=== PATIENT | female | born 1955 | race Caucasian/White ===

== ENCOUNTER → 2018-06-13 15:25 | Outpatient (CLI) | payer BC | END | disposition home or self-care (01) | LOC: D.CT 15:25 | DX: R07.9 Chest pain, unspecified (principal); R05 Cough ==

== ENCOUNTER → 2018-06-20 09:04 | Outpatient (CLI) | payer BC | END | disposition home or self-care (01) | LOC: D.RAD 09:00 | DX: K44.9 Diaphragmatic hernia without obstruction or gangrene (principal); R07.9 Chest pain, unspecified; R05 Cough; R14.2 Eructation; R11.0 Nausea; R19.7 Diarrhea, unspecified; R10.12 Left upper quadrant pain ==

== ENCOUNTER → 2018-09-02 08:04 | Day surgery (SDC) | payer BC | END | disposition home or self-care (01) | LOC: D.OPS 08:04 | PROVIDERS: ATTEND Surgery | DX: K21.9 Gastro-esophageal reflux disease without esophagitis (principal); K44.9 Diaphragmatic hernia without obstruction or gangrene; Z01.812 Encounter for preprocedural laboratory examination ==

== ENCOUNTER → 2018-09-12 08:27 | Outpatient (CLI) | payer BC ==
[~2018-09-12 08:27] MED LIST: ASPIRIN325 MG PO; CYCLOBENZAPRINE10 MG PO; EZFE 200200 MG PO; MAG-OXIDE400 MG PO; NORCO-10 PO; PREDNISONE20 MG PO; PROTONIX40 MG PO; PROZAC20 MG PO; TUMS X-STR300 MG PO; VITAMIN D31000 UNI2 PO
--- NOTE | 2018-09-16 08:49 | EC ---
PATIENT:PAL ALEXANDER DATE OF SERVICE: 09/12/18 SEX: F MEDICAL RECORD: [id number] DATE OF : [birth year] LOCATION:[facility] AGE OF PATIENT: 62 ADMISSION DATE: 09/12/18 REFERRING PHYSICIAN: INTERPRETING PHYSICIAN: AMY SANTIAGO MD ECHOCARDIOGRAM REPORT ECHO CHARGES 4 ECHO COMPLETE Date: 09/12/18 CLINICAL DIAGNOSIS: ANGINA/SHAFER/ABNORMAL EKG/MURMUR ECHOCARDIOGRAPHIC MEASUREMENTS (adult normal given) AC root (d.<3.7cm) 3.2 cm LV Septum d (<1.2 cm> 1.2 cm Valve Excursion 2.1 cm LV Septum (systole) 1.8 cm Left Atria (s.<4.0cm> 4.3 cm LVPW d(<1.2cm) 1.2 cm RV (d.<2.3cm) 2.6 cm LVPW (sytole) 1.8 cm LV diastole(<5.6CM) 5.2 cm MV E-F(>70mm/sec) cm LV systole 3.0 cm LVOT Diameter 2.1 cm MV exc.(>10mm) cm Est.ejection fraction (50-75%) % DOPPLER: LVIT cm/sec A 77.0 cm/sec E 88.0 cm/sec LA cm/sec RVSP 37.1 mmHg LVOT 104 cm/sec AOP1/2T m/s Asc. Ao 159 cm/sec RVOT 72.0 cm/sec RA cm/sec PA 109 cm/sec AV Gradient Peak 10.1 mmHg AV Mean 5.1 mmHg AV Area 2.1 cm MV Gradient Peak 4.5 mmHg MV Mean 1.5 mmHg MV Area cm COMMENTS: OP - HC Forms Examiner: 1 [facility] [place] Waste Treatment Operator: 3 Dr. Casas TAPE# PACS Pericardial Effusion N DATE OF SERVICE: 09/12/2018 Adequate 2-D echo, color-flow and spectral Doppler, and M-mode. Borderline LVH. LV internal dimensions are normal. Wall motion is normal. EF greater than 55%. Aortic valve is tricuspid. No evidence of stenosis by Doppler interrogation. Left atrium is dilated at 4.3 cm. Mitral valve shows no prolapse. Mild MR. Right-sided chambers are grossly normal. Trace TR. TRANSINT:[id number] Voice Confirmation ID: [id number] DOCUMENT ID: [id number] ECHOCARDIOGRAM REPORT [id number] PAL ALEXANDER,AMY Rosales MD at 0849 CC: [id number] DICTATION DATE: 09/15/18 1441 CUPOLA TAPPER HELPER: 09/15/18 1527 [facility] CLI 09/12/18 [place] [id number] [place] [id number]
--- NOTE | 2018-09-17 10:39 | ST ---
PATIENT:PAL ALEXANDER JESSICA MEDICAL RECORD: [id number] SEX: F LOCATION:[facility] ORDER #: ADMISSION DATE: 09/12/18 AGE OF PATIENT: 62 REFERRING PHYSICIAN: INTERPRETING PHYSICIAN: CHARLENE GRESHAM MD DATE OF SERVICE: 09/12/2018 PROCEDURE: Nuclear stress test. INDICATIONS: Angina, shortness of breath, abnormal ECG. She was exercised on standard Oscar protocol for 5 minutes 30 seconds achieving greater than 85% max target heart rate response with 33 mCi of sestamibi injected at peak stress, 11 mCi used previously for rest images. FINDINGS: Gated SPECT reveals preserved ejection fraction at 70% with good wall motion and thickening and brightening throughout all segments. SPECT imaging Cardiolite was used as myocardial fusion agent. There is homogeneous uptake throughout all segments at rest and stress with no evidence of inducible ischemia or previous infarction. OVERALL IMPRESSION: 1. This is a normal nuclear stress test with no evidence of inducible ischemia or previous infarction. 2. Gated SPECT reveals a preserved ejection fraction at 70%. In this patient with ongoing symptomatology, the current scan does not suggest the presence of hemodynamically significant coronary artery disease. Evaluate noncardiac etiology of chest pain. TRANSINT:[id number] Voice Confirmation ID: [id number] DOCUMENT ID: [id number] CHARLENE GRESHAM MD at 1039 CC: RANDELL WALLACE [id number] DICTATION DATE: 09/12/18 1225 TICKET SORTER: 09/13/18 0726 [facility] CLI 09/12/18 [place] [id number] [place] [address]
== END | disposition home or self-care (01) ==
LOC: D.HCCARDIO 08:27
DX: I20.9 Angina pectoris, unspecified (principal); R06.09 Other forms of dyspnea

== ENCOUNTER 2018-11-06 06:00 | Day surgery (SDC) | payer BC ==
[2018-11-05 13:54] LABS: CALC OSMOLALITY 283 mosm/kg (275-300); CALCIUM 9.2 mg/dL (8.5-10.1); CHLORIDE - SERUM 107 mmol/L (98-107); CREATININE - SERUM 0.7 mg/dL (0.6-1.3); GLUCOSE 98 mg/dL (74-106); POTASSIUM - SERUM 4.4 mmol/L (3.5-5.1); SODIUM 143 mmol/L (136-145); UREA NITROGEN 10 mg/dL (7-18); eGFR NON AFRICAN AMERICAN 90 mL/min (90-120)
[2018-11-05 14:13] LABS: BASOPHILS 0.8 % (0-2); EOSINOPHILS 2.9 % (0-7); HEMATOCRIT 39.6 % (36.0-48.0); HEMOGLOBIN 12.4 g/dL (12-16); IMMATURE GRANULOCYTES 0.2 % (0-5); LYMPHOCYTES 33.3 % (15-50); MCH 24.6 pg (26.0-34.0); MCHC 31.3 g/dL (31.0-37.0); MCV 78.6 fL (80.0-100.0); MONOCYTES 8.6 % (2-11); NEUTROPHILS 54.2 % (40-80); PLATELET COUNT 402 10x3/uL (130-400); RBC 5.04 10x6/uL (4.00-5.40); RDW 24.5 % (11.5-14.5); WBC 6.5 10x3/uL (4.8-10.8)
[~2018-11-06] VITALS: Ht 162.6 cm; Wt 95.5 kg
[2018-11-06] VITALS (11 sets, daily range): BP systolic 137–164; BP diastolic 62–83; Ht 162.6 cm; Wt 95.5 kg
[~2018-11-06 06:00] MED LIST changes: -CYCLOBENZAPRINE10 MG PO; -EZFE 200200 MG PO; -MAG-OXIDE400 MG PO; -NORCO-10 PO; -PREDNISONE20 MG PO; -TUMS X-STR300 MG PO; -VITAMIN D31000 UNI2 PO
[2018-11-06] MEDS ORDERED: MAG-OXIDE400 MG PO (07:00)
[2018-11-06] MEDS ORDERED: VITAMIN D31000 UNI2 PO (07:00)
[2018-11-06] MEDS ORDERED: TUMS X-STR300 MG PO (07:00)
[2018-11-06] MEDS ORDERED: EZFE 200200 MG PO (07:01)
--- NOTE | 2018-11-06 12:00 | NUR ---
PATIENT TO ROOM AT THIS TIME WITH IV INTACT. NOC OMPLAINTS OR SIGNS OF DISTRESS. O2 AT 4 LITERS. SATS 90-93%. BANDAIDS TO ABDOMEN CDI. BSCDS ON AND WORKING. CALL LIGHT WITHIN REACH.
--- NOTE | 2018-11-06 16:45 | NUR ---
PATIENT IN BED WITH IV INTACT. VS STABLE. O2 ON AT 4 L NC. NO COMPLAINTS. POST OFFICE CLERK WORKING FOR PAIN. CALL LIGHT WITHIN REACH.
--- NOTE | 2018-11-06 18:36 | NUR ---
PATIENT RECIEVED DILAUDID BOLUS 0.4 MG FROM TOWER OPERATOR. PATIENT UP OUT OF BED AND YELLING ABOUT SHOULDER PAIN FROM GAS. EXPLAINED TO PATIENT THAT WALKING AND MOVING AROUND WILL HELP WITH THE PAIN. VERBALIZED UNDERSTANDING. IV INTACT. CALL LIGHT WITHIN REACH.
--- NOTE | 2018-11-06 18:50 | NUR ---
PATIENT STILL SITTING UP AT BEDSIDE AND STATING SHE NEEDS SOMETHING ELSE TO HELP HER WITH PAIN. EXPLAINED TO PATIENT THAT SHE NEEDED TO RELAX AND TAKE DEEP BREATHS TO HELP EASE THE PAIN. GAVE ATIVAN 1 MG FOR ANXIETY AND RELAXATION. PATIENT IV INTACT. NO OTHER COMPLAINTS. SCDS OFF AT THIS TIME. CALL LIGHT WITHIN REACH.
--- NOTE | 2018-11-06 19:09 | NUR ---
PATIENT SITTING UP ON SIDE OF THE BED MORE RELAXED AND STATES LESS PAIN. IV INTACT. SATS 91 ON RA. EXPLAINED SHE WOULD NEED TO PUT O2 ON WHEN SHE GOES BACK TO BED. VERBALIZED UNDERSTANDING. CALL LIGHT WITHIN REACH.
[2018-11-07] VITALS (7 sets, daily range): BP systolic 106–153; BP diastolic 58–93
--- NOTE | 2018-11-07 01:00 | NUR ---
PT ALERT & ORIENTED. OXYGEN SAT DIPPING DOWN TO 88-89%. ENCOURAGING PT TO BREATH THROUGH HER NOSE, SAT COME UP TO 90-91% FOR A FEW SECONDS THEN GOES BACK DOWN. PT SAYS THAT IT HURTS HER ABDOMEN TO TAKE DEEP BREATHS. OXYGEN CURRENTLY AT 5L/NC. CALLED RT MARY GRACE. PT NOW ON 10L HIGH FLOW CANNULA - SAT NOW 93-94%. WILL REASSESS AND CONTINUE TO MONITOR.
--- NOTE | 2018-11-07 17:13 | NUR ---
UP AT BEDSIDE. PT IS WITHOUT NEEDS.CALL LIGHT IN REACH
[2018-11-08 00:27] VITALS: BP 146/87
--- NOTE | 2018-11-08 00:52 | NUR ---
PT C/O ABDOMINAL PAIN 09/26. GAVE NORCO-10 1 TAB PO. PT SITTING UP CHAIR. USING ACCESSORY MUSCLES TO BREATH. ASSISTED PT BACK TO BED. HOB 45 DEGREES.
[2018-11-08 05:12] VITALS: BP 143/84
[2018-11-08 09:41] VITALS: BP 139/79
--- NOTE | 2018-11-08 11:32 | NUR ---
PT IS SITTING IN CHAIR AT BEDSIDE, STATES SHE IS HURTING THIS MORNING, WANTS TO GO FOR A WALK, CALLED RESPIRATORY FOR OXYGEN TANK. NO OTHER NEEDS VOICED, CONTINUE WITH PLAN OF CARE. PT STATED SHE IS HAVING A TROUBLE SWALLING HER FOOD THIS MORNING AND IT SEEMS TO GET STUCK. WILL RELAY MESSAGE TO DOCTORS
--- NOTE | 2018-11-08 12:52 | NUR ---
PT ASKED FOR PAIN MEDICATION AGAIN ADVISED HER I JUST ADMINISTERED PRN PAIN MEDICATION, CONTINUE WITH PT CARE
[2018-11-08 12:59] VITALS: BP 140/76
[2018-11-08 16:28] VITALS: BP 107/72
--- NOTE | 2018-11-08 18:33 | NUR ---
I have reviewed this patient and I concur with the Shift Assessment completed by the Licensed Practical Nurse today this shift.
[2018-11-08 20:00] VITALS: BP 127/63
[2018-11-09] VITALS: BP 128/60
--- NOTE | 2018-11-09 00:34 | NUR ---
PT C/O BACK PAIN 10/27. REQUESTED MUSCLE RELAXER. CALLED PHYSICIAN. GAVE FLEXERIL [address] BLAKE TELEPHONE ORDER. PT SITTING UP IN CHAIR. SHORT OF BREATH. PT AMBULATES TO BATHROOM INDEPENDENTLY. OXYGE SAT IS 90-93% ON 6L HIGH [place] NC. NO OTHER NEEDS. WILL CONTINUE TO MONITOR.
[2018-11-09 04:00] VITALS: BP 130/67
[2018-11-09 06:31] LABS: BASOPHILS 0.1 % (0-2); EOSINOPHILS 0.3 % (0-7); HEMOGLOBIN 10.2 g/dL (12-16); IMMATURE GRANULOCYTES 0.2 % (0-5); LYMPHOCYTES 7.1 % (15-50); MCH 24.9 pg (26.0-34.0); MCHC 30.9 g/dL (31.0-37.0); MCV 80.5 fL (80.0-100.0); MEAN PLATELET VOLUME 9.7 fL (7.4-10.4); MONOCYTES 7.7 % (2-11); NEUTROPHILS 84.6 % (40-80); WBC 18.9 10x3/uL (4.8-10.8)
[2018-11-09 06:35] LABS: PLATELET COUNT 249 10x3/uL (130-400)
[2018-11-09 06:49] LABS: CALC OSMOLALITY 270 mosm/kg (275-300); CALCIUM 9.2 mg/dL (8.5-10.1); CARBON DIOXIDE 29.2 mmol/L (21.0-32.0); CHLORIDE - SERUM 100 mmol/L (98-107); CREATININE - SERUM 0.8 mg/dL (0.6-1.3); GLUCOSE 95 mg/dL (74-106); POTASSIUM - SERUM 4.4 mmol/L (3.5-5.1); SODIUM 134 mmol/L (136-145); UREA NITROGEN 22 mg/dL (7-18); eGFR NON AFRICAN AMERICAN 77 mL/min (90-120)
[2018-11-09 09:19] VITALS: BP 135/81
--- NOTE | 2018-11-09 09:25 | NUR ---
RAPID RESPONSE CALLED DUE TO LABOERED RESPIRATIONS AND WHEEZING. UP DRAFTS GIVEN BY PT WITH PATIENT RESPONDING WELL. WILL CONT TO MONITOR
[2018-11-09 12:55] VITALS: BP 140/83
--- NOTE | 2018-11-09 14:33 | NUR ---
PATIENT RESTING QUIETLY AFTER DILAUDID GIVEN FOR BACK PAIN, WILL CONT TO MONITOR. CL IN REACH
[2018-11-09 17:28] VITALS: BP 131/76
[2018-11-09 20:00] VITALS: BP 140/83
--- NOTE | 2018-11-09 20:00 | NUR ---
UP AMBULATING IN ROOM WITH O2 IN USE AT 4 L N/C, ABD INCISIONS INTACT WITH STERI STRIPS, C/O BACK PAIN , SEE SHIFT ASSESSMENT CALL LIGHT IN REACH
[2018-11-10 05:16] LABS: BASOPHILS 0.1 % (0-2); EOSINOPHILS 0.9 % (0-7); HEMATOCRIT 31.7 % (36.0-48.0); IMMATURE GRANULOCYTES 0.4 % (0-5); LYMPHOCYTES 6.8 % (15-50); MCHC 31.5 g/dL (31.0-37.0); MCV 79.3 fL (80.0-100.0); MEAN PLATELET VOLUME 10.1 fL (7.4-10.4); MONOCYTES 11.9 % (2-11); NEUTROPHILS 79.9 % (40-80); RDW 23.9 % (11.5-14.5)
[2018-11-10 05:18] LABS: PLATELET COUNT 342 10x3/uL (130-400)
[2018-11-10 05:22] LABS: CALC OSMOLALITY 269 mosm/kg (275-300); CALCIUM 8.8 mg/dL (8.5-10.1); CARBON DIOXIDE 28.8 mmol/L (21.0-32.0); CHLORIDE - SERUM 100 mmol/L (98-107); CREATININE - SERUM 0.6 mg/dL (0.6-1.3); GLUCOSE 83 mg/dL (74-106); POTASSIUM - SERUM 4.1 mmol/L (3.5-5.1); SODIUM 135 mmol/L (136-145); eGFR NON AFRICAN AMERICAN > 90 mL/min (90-120)
[2018-11-10 05:24] LABS: UREA NITROGEN 14 mg/dL (7-18)
[2018-11-10 09:01] VITALS: BP 155/86
[2018-11-10] MEDS ORDERED: CYCLOBENZAPRINE10 MG PO (09:04)
[2018-11-10] MEDS ORDERED: NORCO-10 PO (09:04)
[2018-11-10] MEDS ORDERED: PREDNISONE20 MG PO (09:06)
--- NOTE | 2018-11-10 09:40 | NUR ---
MORNING ASSESSMENT COMPLETE. SEE ASSESSMENT FLOWSHEET FOR FURHTER DETIALS. PT LYING IN BED AAO X4 TO PERSON, PLACE, TIME, AND SITUATION. DENIES NEEDS AT THIS TIME. CL IN REACH. SIDE RAILS UP X3 FOR PT SAFETY. BED IN LOWEST POSITION.
--- NOTE | 2018-11-13 09:03 | OP ---
PATIENT NAME: PAL ALEXANDER MEDICAL RECORD: [id number] :57 LOCATION:[facility] ADMISSION DATE: SURGEON: BECK BLAKE MD DATE OF OPERATION: 11/06/2018 PREOPERATIVE DIAGNOSES: 1. Paraesophageal hernia. 2. Obesity with a BMI of 36. POSTOPERATIVE DIAGNOSES: 1. Paraesophageal hernia. 2. Obesity with a BMI of 36. PROCEDURE: Laparoscopic paraesophageal hernia repair. SURGEON: Beck Blake MD REPORT OF PROCEDURE: The patient's abdomen was prepped and draped in sterile fashion. A Veress needle was inserted in the left upper quadrant and the abdomen was insufflated. An 11-mm Visiport trocar was inserted in the midline just above the umbilicus. We could see the Veress needle and there was no sign of any injury to bowel or surrounding structures. An 11-mm Visiport trocar was then inserted in the left upper quadrant, a 5 mm trocar was placed in the epigastrium, a 5-mm trocar was placed in the left lateral abdomen and a final 5-mm trocar was placed in the right lateral subcostal region. A liver retractor was inserted and the left lobe of the liver was elevated. At this point, we could see there was a large diaphragmatic hernia with a significant portion of the stomach extending up into the thoracic cavity. We could pull the stomach down and it was under tension that whenever we would release the stomach, it would go quickly back up into the thoracic cavity. We started our dissection on the lesser omentum using Harmonic scalpel. We dissected this lesser omentum off of the lesser curvature of the stomach up to the right side of the right josh. We then scored the peritoneum on this side of the josh and started taking down the hernia sac. We extended this through the avascular plane and took down as much of the sac as possible going as far anteriorly and posteriorly as we could clearly see. Once we had done this, then we started on the greater curvature of stomach. About prison up the stomach, we started taking down the short gastrics using Harmonic scalpel. We extended this dissection of the short gastrics all the way up to the left side of the right josh. We then again scored the peritoneum and started taking down the hernia sac from the thoracic cavity. The hernia sac was quite large and extended about 6-7 centimeters up into the chest. We dissected down and removed this hernia sac and could get at this point, a clear visualization of the esophagus. We cleared off of all of the tissues and extended our dissection of the esophagus up as far as we could into the chest. Once we had done this, then we removed the hernia sac off of the anterior aspect of the GE junction. The stomach would now rest easily in the abdominal cavity including approximately 1 cm of the esophagus. The diaphragmatic hernia defect was then closed with interrupted 0 Polydeks times 3. We performed a 360-degree posterior wrap of the fundus of the stomach around the distal esophagus using interrupted 0 Polydeks times 3 with the top and the bottom suture incorporating a bite of the esophagus. The wrap appeared to rest in good position. There was no sign of any bleeding at the conclusion of the case. We irrigated out the abdomen and then removed the liver retractor. The 11-mm trocar site fascias were closed with interrupted 0 Vicryls using a Bertarnd-Maureen suture passer device. The ports and insufflation were then OPERATIVE REPORT [id number] PAL ALEXANDER. The subcutaneous tissues were infused with a total of 10 mL of 0.25% Marcaine with epinephrine and then closed with subcutaneous 5-0 Monocryl. COMPLICATIONS: None. CONDITION: Stable. ANESTHESIA: General endotracheal and local. BLOOD LOSS: Minimal. TRANSINT:[id number] Voice Confirmation ID: [id number] DOCUMENT ID: [id number] BECK BLAKE MD at 0903 CC: RANDELL WALLACE and ANCELMO CARLOS MD [id number] DICTATION DATE: 11/06/18 1017 AUTOTRANSFUSIONIST: 11/06/18 1032 [facility] 11/10/18 [facility] [address] [place] [address]
== END 2018-11-10 10:36 | disposition home or self-care (01) ==
LOC: D.OPS 06:00 → D.MS 06:00 → D.OPS 08:00 → D.PAN 08:00 → D.MS 11:26 → D.OPS 11-10 10:36
PROVIDERS: ATTEND Surgery
DX: K44.9 Diaphragmatic hernia without obstruction or gangrene (principal); E66.9 Obesity, unspecified; Z68.36 Body mass index [BMI] 36.0-36.9, adult; Z01.812 Encounter for preprocedural laboratory examination